=== PATIENT | male | born 1940 | race Caucasian/White ===

== ENCOUNTER 2023-08-28 08:51 | Day surgery (SDC) | payer MEDICARE, OTHER ==
[2023-08-28] VITALS (18 sets, daily range): BP systolic 111–155; BP diastolic 54–91; PULSE 62–76; RESP 7–18; TEMP 97.1; O2SAT 89–100
[~2023-08-28] VITALS: Ht 185.4 cm; Wt 113.3 kg
[~2023-08-28 08:51] MED LIST: ALPR1TAB7 PO; ARIP5TAB14 PO; ASPI-611 PO; ATEN-27 PO; ATEN25TA PO; BUPR-317 PO; CO Q10; DOCUMENT DATE & TIME OF BETA-BLOCKER PO ONE; ESCI20TA39 PO; LISI20TA28 PO; ROSU20TA73 PO; UMEC1DIS INH; VIT D3; enalaprilat dihydrate 2.5mg/2ml vial IV PRN; labetalol 20mg/4ml (5mg/ml) syringe IV PRN; meperidine/PF 25mg/ml syringe IV PRN; morphine 2 MG/ML inj. syringe IV PRN; morphine 4 MG/ML inj SYRINge IV PRN; ondansetron/PF 4mg/2ml inj IV PRN; proCHLORperazine 10 MG/2 ml inj IV PRN; ringers solution, lacted 1,000 ML IV SCH
[2023-08-28] MEDS: famotidine 20mg tablet PO ONE (09:59)
[2023-08-28] MEDS: ringers solution, lacted 1,000 ML IV SCH (10:02)
[2023-08-28 10:24] LABS: LYMPHOCYTES # (AUTO) 0.9 X10'3 (1.1-4.8); MEAN PLATELET VOLUME 8.5 FL (7.4-10.4); MONOCYTES # (AUTO) 0.4 X10'3 (0-0.9); PRE OP WHITE BLOOD COUNT 4.4 10'3 (4.8-10.8)
[2023-08-28 10:25] LABS: BASOPHILS % (AUTO) 0.3 % (0-1); EOSINOPHILS % (AUTO) 0.8 % (0-6); LYMPHOCYTES % (AUTO) 20.7 % (21-51); MEAN CORPUSCULAR HEMOGLOBIN 33.2 PG (27.0-31.0); MEAN CORPUSCULAR HGB CONC 33.9 g/dL (33.0-36.5); MEAN CORPUSCULAR VOLUME 97.8 FL (78-98); MONOCYTES % (AUTO) 9.3 % (2-12); NEUTROPHILS % (AUTO) 68.9 % (42-75); PRE OP HEMATOCRIT 45.5 % (42.0-52.0); PRE OP HEMOGLOBIN 15.4 g/dL (14.0-17.9); PRE OP PLATELET COUNT 132 X10'3 (140-440); RED BLOOD COUNT 4.65 X10'6 (4.70-6.10)
[2023-08-28 10:43] LABS: ALBUMIN 3.6 G/DL (3.4-5.0); ALBUMIN/GLOBULIN RATIO 0.9 (1.1-1.5); ALKALINE PHOSPHATASE 56 IU/L (46-116); BLOOD UREA NITROGEN 20 MG/DL (7-18); BUN/CREATININE RATIO 15.7 (10.0-20.0); CALCIUM 9.1 MG/DL (8.5-10.1); CHLORIDE 109 MMOL/L (99-107); CREATININE 1.27 MG/DL (0.60-1.10); PRE OP ALT 20 U/L (30-65); PRE OP ANION GAP 6 (8-16); PRE OP AST 19 U/L (10-37); PRE OP BILIRUB, TOTAL 0.6 MG/DL (0.0-1.0); PRE OP GLUCOSE 95 MG/DL (70-104); PRE OP POTASSIUM 4.3 MMOL/L (3.4-5.1); PRE OP SODIUM 146 MMOL/L (135-145); TOTAL CARBON DIOXIDE 31.5 MMOL/L (24-32); TOTAL PROTEIN 7.4 G/DL (6.4-8.2); eCRCL 52 ML/MIN; eGFR 54 ML/MIN
[2023-08-28] MEDS ORDERED: sevoflurane 250ml liquid IH ONE (11:00)
[2023-08-28] MEDS ORDERED: dexamethasone sod phosphate 10mg/ml inj ONE (11:00)
[2023-08-28] MEDS ORDERED: rocuronium 10mg/ml inj IV ONE ×2 (11:00→12:34)
[2023-08-28] MEDS ORDERED: propofol inj 20 ML IV ONE (11:15)
[2023-08-28] MEDS ORDERED: LIDOcaine 1%/PF 5ML 10 MG/ML VIAL ONE (11:15)
[2023-08-28] MEDS ORDERED: midazolam 1 mg/ML 2ml injection ONE (11:15)
[2023-08-28] MEDS ORDERED: fentaNYL /PF 50mcg/ml 5ml ampule ONE (11:15)
[2023-08-28] MEDS ORDERED: ondansetron/PF 4mg/2ml inj ONE (12:34)
[2023-08-28] MEDS: ipratropium/albuterol 3ml nebule NEB ONE (14:42)
== END 2023-08-28 15:19 | disposition home or self-care (01) ==
LOC: PAS 08:51
PROVIDERS: ATTEND Internal Medicine Critical Care Medicine
DX: R91.8 Other nonspecific abnormal finding of lung field (principal); Z79.899 Other long term (current) drug therapy
CPT/HCPCS: 31624; 31628; 31653; 36415; 71045; 71250; 80053; 82948; 85025; 87015; 87070; 87102; 87116; 87206; 88305; 88341; 88342; 93005; 94640; 94760; J1100; J2250; J2405; J2704; J3010; J3490; J7120; Z7506; Z7508; Z7512; 31622; 31625; 31626; 31627; 31654; 88172; 88173; A4615; A4618